=== PATIENT | male | born 1980 | race Caucasian/White ===

== ENCOUNTER 2016-09-02 18:54 | Emergency (ER) | payer MEDICAID ==
[~2016-09-02] VITALS: Ht 182.9 cm; Wt 75.0 kg
[2016-09-02 19:00] VITALS: Ht 182.9 cm; Wt 75.0 kg
[2016-09-02] MEDS ORDERED: ACETAMINOPHEN 325 MG TAB PO ONE (20:30)
--- NOTE | 2016-09-02 20:30 | RADRPT ---
PROCEDURE: XR Chest. CLINICAL INDICATION: Cough TECHNIQUE: Chest AP portable. COMPARISON: No comparison available. FINDINGS: The mediastinal structures are unremarkable. The heart is normal in size and configuration. The pu lmonary vascularity is normal. The lung olmos are unremarkable. No consolidation is identified. The pleural spaces are unremarkable. The axial skeleton is unremarkable. IMPRESSION: No active intrathoracic disease. RPTAT: HGDB .Norbert Alvarez MD, MD Date Time Electronically viewed and signed by .Norbert Alvarez MD, on 09/02/2016 20:30 .B/
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
[2016-09-02] MEDS ORDERED: ACET500C5 PO (21:52)
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
[2016-09-02 22:54] LABS: ADD UMIC YES; URINE BILIRUBIN (Dip) NEGATIVE (NEGATIVE); URINE BLOOD (Dip) NEGATIVE (NEGATIVE); URINE COLOR LT. YELLOW (YELLOW); URINE GLUCOSE (Dip) NEGATIVE (NEGATIVE); URINE KETONES (Dip) NEGATIVE (NEGATIVE); URINE LEUKOCYTE ESTERASE (Dip) TRACE (NEGATIVE); URINE NITRITE (Dip) NEGATIVE (NEGATIVE); URINE TOTAL PROTEIN (Dip) NEGATIVE (NEGATIVE); URINE UROBILINOGEN (Dip) 0.2 E.U./dL (0.1-1.0)
[2016-09-02 23:01] LABS: SQUAMOUS EPITHELIAL CELL,UR RARE; URINE RBCS 0-2 /HPF (0)
[2016-09-02 23:18] LABS: CANNABINOIDS Negative (NEGATIVE)
[2016-09-02 23:20] LABS: ADD SCAN DIFF NO
[2016-09-02 23:22] LABS: BARBITURATES Negative (NEGATIVE); BENZODIAZEPINES Negative (NEGATIVE); COCAINE Negative (NEGATIVE); OPIATES Negative (NEGATIVE)
[2016-09-02 23:26] LABS: BASOPHIL # 0.1 10^3/ul (0.0-0.1); BASOPHILS % 0.5 % (0.0-2.0); EOSINOPHILS # 0.2 10^3/ul (0.0-0.5); EOSINOPHILS % 1.5 % (0.0-7.0); HEMATOCRIT 36.5 % (42.0-52.0); LYMPHOCYTES # 2.9 10^3/ul (0.8-2.9); LYMPHOCYTES % 27.7 % (15.0-51.0); MEAN CORPUSCULAR HGB CONC 32.9 g/dl (32.0-37.0); MEAN CORPUSCULAR VOLUME 85.3 fl (82.0-101.0); MEAN PLATELET VOLUME 9.4 fl (7.4-10.4); MONOCYTE # 0.7 10^3/ul (0.3-0.9); MONOCYTES % 6.9 % (0.0-11.0); NEUTROPHIL # 6.6 10^3/ul (1.6-7.5); NEUTROPHILS % 62.9 % (39.0-77.0); PLATELET COUNT 321 10^3/UL (140-415); RED BLOOD COUNT 4.28 10^6/ul (4.70-6.10); RED CELL DISTRIBUTION WIDTH 12.7 % (11.5-14.5); WHITE BLOOD COUNT 10.5 10^3/ul (4.8-10.8)
[2016-09-02 23:37] LABS: ALBUMIN 3.4 g/dl (3.3-4.9)
[2016-09-02 23:38] LABS: CHLORIDE 101 mmol/L (97-110); POTASSIUM 3.6 mmol/L (3.5-5.1); SODIUM 141 mmol/L (135-144)
[2016-09-02 23:40] LABS: ALBUMIN/GLOBULIN RATIO 0.75; ALKALINE PHOSPHATASE 99 IU/L (42-121); ANION GAP 14 (8-16); ASPARTATE AMINO TRANSFERASE 62 IU/L (15-46); BILIRUBIN,INDIRECT 0.1 mg/dl (0-1.1); BILIRUBIN,TOTAL 0.1 mg/dl (0.2-1.3); BLOOD UREA NITROGEN 7 mg/dl (7-20); CARBON DIOXIDE 30 mmol/L (21-31); CREATININE 0.79 mg/dl (0.61-1.24); TOTAL PROTEIN 7.9 g/dl (6.1-8.1)
[2016-09-02 23:41] LABS: ALANINE AMINOTRANSFERASE 110 IU/L (13-69); CALCIUM 8.8 mg/dl (8.4-10.2); GLUCOSE 116 mg/dl (70-220)
[2016-09-02 23:56] LABS: ACETAMINOPHEN < 10.0 ug/ml (10.0-30.0); ETHANOL < 10.0 mg/dl; SALICYLATE < 1.0 mg/dl (5.0-30.0)
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
[2016-09-03] MEDS ORDERED: HALOPERIDOL 5 MG TAB PO ONE (02:00)
[2016-09-03 07:54] VITALS: BP 129/64; PULSE 73; RESP 19; TEMP 98.8
== END 2016-09-03 09:16 | disposition home or self-care (01) ==
LOC: FTE 18:54 → E/R 09-03 09:16
DX: S09.93XA Unspecified injury of face, initial encounter (principal); R40.2252 Coma scale, best verbal response, oriented, at arrival to emergency department; S09.90XA Unspecified injury of head, initial encounter; F17.210 Nicotine dependence, cigarettes, uncomplicated; R51 Headache; R40.2142 Coma scale, eyes open, spontaneous, at arrival to emergency department; R40.2362 Coma scale, best motor response, obeys commands, at arrival to emergency department; Y04.0XXA Assault by unarmed brawl or fight, initial encounter
CPT/HCPCS: 70450; 70486; 71010; 80053; 80306; 80307; 81001; 85025; Z7502; Z7610; 81003